=== PATIENT | female | born 1945 | race Caucasian/White ===

== ENCOUNTER 2021-11-16 10:34 | Outpatient (CLI) | payer MEDICARE | END 2021-11-16 10:35 | disposition home or self-care (01) | LOC: BICMAMMO 10:34 | PROVIDERS: ATTEND Student in an Organized Health Care Education/Training Program | DX: Z12.31 Encounter for screening mammogram for malignant neoplasm of breast (principal) | CPT/HCPCS: 77063; 77067 ==

== ENCOUNTER 2022-01-12 08:48 | Outpatient (CLI) | payer OTHER ==
[~2022-01-12 08:48] MED LIST: Iopamidol 370 76% 100 ML VIAL ONE
== END 2022-01-12 08:49 | disposition home or self-care (01) ==
LOC: CT 08:48
PROVIDERS: ATTEND Neurological Surgery
DX: I67.1 Cerebral aneurysm, nonruptured (principal)
CPT/HCPCS: 70450; 82565; Q9967

== ENCOUNTER 2022-01-26 08:43 | Outpatient (CLI) | payer OTHER | END 2022-01-26 08:44 | disposition home or self-care (01) | LOC: CT 08:43 | PROVIDERS: ATTEND Neurological Surgery | DX: I67.1 Cerebral aneurysm, nonruptured (principal) | CPT/HCPCS: 70496; 82565; Q9967 ==

== ENCOUNTER 2022-02-08 07:52 | Emergency (ER) | payer OTHER ==
[2022-02-08] MEDS ORDERED: Acetaminophen 325 MG TAB ONE (08:45)
== END 2022-02-08 09:40 | disposition home or self-care (01) ==
LOC: ERS 07:52
DX: S92.352A Displaced fracture of fifth metatarsal bone, left foot, initial encounter for closed fracture (principal); E78.00 Pure hypercholesterolemia, unspecified; E78.5 Hyperlipidemia, unspecified; Z79.01 Long term (current) use of anticoagulants; Z79.82 Long term (current) use of aspirin; Z79.899 Other long term (current) drug therapy; W19.XXXA Unspecified fall, initial encounter

== ENCOUNTER 2022-06-29 08:39 | Outpatient (CLI) | payer OTHER | END 2022-06-29 08:40 | disposition home or self-care (01) | LOC: BICMAMMO 08:39 | PROVIDERS: ATTEND Student in an Organized Health Care Education/Training Program | DX: Z13.820 Encounter for screening for osteoporosis (principal); M81.8 Other osteoporosis without current pathological fracture; Z78.0 Asymptomatic menopausal state | CPT/HCPCS: 77080 ==

== ENCOUNTER 2023-02-18 18:58 | Emergency (ER) | payer OTHER ==
[2023-02-18] MEDS ORDERED: Acetaminophen 500 MG TAB ONE (19:53)
[2023-02-18] MEDS ORDERED: Boostrix 0.5 ML (Tdap) VIAL (>/=7 yrs of age) ONE (19:53)
[2023-02-18 20:07] LABS: #Basophils 0.1 thou/uL (0.0-0.2); #Eosinphils 0.1 thou/uL (0.0-0.7); #Monocytes 0.6 thou/uL (0.11-0.59); #Neutrophils 3.9 thou/uL (1.40-6.50); %Basophils 0.7 % (0.0-1.0); %Eosinophils 1.3 % (0.0-10.0); %Lymphocytes 50.5 % (21.0-51.0); %Monocytes 6.6 % (0.0-10.0); %Neutrophils 40.6 % (42.0-75.0); Hemoglobin 10.9 g/dL (12.0-16.0); Mean Corpuscular Hemoglobin 28.8 pg (27.0-31.0); Mean Corpuscular Volume 87.3 fl (78.0-98.0); Mean Platelet Volume 10.1 fL (7.4-10.4); Platelet Count 249 10x3/uL (130-400); RBC Distribution Width 15.3 % (11.5-14.5); Red Blood Cell (RBC) Count 3.78 mill/uL (4.20-5.40); White Blood Cell (WBC) Count 9.5 10x3/uL (4.8-10.8)
[2023-02-18 20:27] LABS: INR-International Normal Ratio 2.6; PTT 37.6 sec (22.9-36.1); Prothrombin Time 28.9 sec (12.0-14.7)
[2023-02-18 20:39] LABS: ALT (SGPT) 16 U/L (8-55); AST (SGOT) 30 U/L (5-34); Alkaline Phosphatase 111 U/L (40-110); Anion Gap 18 mmol/L (10-20); BUN (Urea Nitrogen) 13 mg/dL (9.8-20.1); Bilirubin, Total 0.3 mg/dL (0.2-1.2); CK (CPK) 76 U/L (29-168); Calc. Creatinine Clearance 0 mL/min (70-130); Calcium 8.9 mg/dL (7.8-10.44); Carbon Dioxide 17 mmol/L (23-31); Chloride 102 mmol/L (98-107); Estimated GFR 77; Globulin 2.6 g/dL (2.4-3.5); Glucose 102 mg/dL (83-110); Potassium 3.9 mmol/L (3.5-5.1); Protein, Total 6.6 g/dL (5.8-8.1); Sodium 133 mmol/L (136-145)
[2023-02-18] MEDS ORDERED: Lidocaine 1% w/Epinephrine 1:100K 20 ML VIAL ONE (21:19)
== END 2023-02-18 22:41 | disposition home or self-care (01) ==
LOC: ERS 18:58
DX: S01.81XA Laceration without foreign body of other part of head, initial encounter (principal); W18.30XA Fall on same level, unspecified, initial encounter; Z23 Encounter for immunization
CPT/HCPCS: 12013; 70450; 72125; 80053; 82550; 83735; 84484; 85025; 85610; 85730; 90471; 90715; 93005

== ENCOUNTER 2023-02-21 09:10 | Emergency (ER) | payer OTHER | END 2023-02-21 11:12 | disposition home or self-care (01) | LOC: ERS 09:10 | DX: S01.81XD Laceration without foreign body of other part of head, subsequent encounter (principal); M25.531 Pain in right wrist; E78.00 Pure hypercholesterolemia, unspecified; W18.30XD Fall on same level, unspecified, subsequent encounter ==

== ENCOUNTER 2023-02-25 08:40 | Emergency (ER) | payer OTHER | END 2023-02-25 09:38 | disposition home or self-care (01) | LOC: ERS 08:40 | DX: S01.81XD Laceration without foreign body of other part of head, subsequent encounter (principal); E78.00 Pure hypercholesterolemia, unspecified; W18.30XD Fall on same level, unspecified, subsequent encounter | CPT/HCPCS: 12013 ==

== ENCOUNTER 2023-03-01 09:18 | Emergency (ER) | payer OTHER | END 2023-03-01 09:47 | disposition home or self-care (01) | LOC: ERS 09:18 | DX: S01.81XD Laceration without foreign body of other part of head, subsequent encounter (principal); E78.00 Pure hypercholesterolemia, unspecified; W18.30XD Fall on same level, unspecified, subsequent encounter; Z87.891 Personal history of nicotine dependence; Z79.01 Long term (current) use of anticoagulants; Z79.899 Other long term (current) drug therapy; Z79.84 Long term (current) use of oral hypoglycemic drugs ==

== ENCOUNTER 2023-03-09 13:28 | Outpatient (CLI) | payer OTHER ==
[~2023-03-09 13:28] MED LIST changes: -Iopamidol 370 76% 100 ML VIAL ONE; +Iopamidol-370 76% 500 ML MDV (1 ML CHARGE) ONE
== END 2023-03-09 13:29 | disposition home or self-care (01) ==
LOC: BICCT 13:28
PROVIDERS: ATTEND Neurological Surgery
DX: I67.1 Cerebral aneurysm, nonruptured (principal)
CPT/HCPCS: 70496

== ENCOUNTER 2023-08-08 10:33 | Emergency (ER) | payer OTHER ==
[2023-08-08] MEDS ORDERED: Acetaminophen 500 MG TAB ONE (11:27)
[2023-08-08 11:39] LABS: #Basophils 0.1 thou/uL (0.0-0.2); #Eosinphils 0.2 thou/uL (0.0-0.7); #Monocytes 0.7 thou/uL (0.11-0.59); #Neutrophils 5.9 thou/uL (1.40-6.50); %Basophils 0.8 % (0.0-1.0); %Eosinophils 1.5 % (0.0-10.0); %Lymphocytes 31.3 % (21.0-51.0); %Monocytes 6.9 % (0.0-10.0); %Neutrophils 59.2 % (42.0-75.0); Hemoglobin 12.1 g/dL (12.0-16.0); Mean Corpuscular HGB CONC 31.8 g/dL (32.0-36.0); Mean Corpuscular Volume 84.8 fl (78.0-98.0); Mean Platelet Volume 9.8 fL (7.4-10.4); Platelet Count 328 10x3/uL (130-400); RBC Distribution Width 15.9 % (11.5-14.5); Red Blood Cell (RBC) Count 4.48 mill/uL (4.20-5.40)
[2023-08-08 12:01] LABS: ALT (SGPT) 18 U/L (8-55); AST (SGOT) 34 U/L (5-34); Albumin 4.5 g/dL (3.4-4.8); Alkaline Phosphatase 118 U/L (40-110); Anion Gap 15 mmol/L (10-20); BUN (Urea Nitrogen) 11 mg/dL (9.8-20.1); Bilirubin, Total 0.9 mg/dL (0.2-1.2); Calc. Creatinine Clearance 0 mL/min (70-130); Calcium 9.4 mg/dL (7.8-10.44); Carbon Dioxide 25 mmol/L (23-31); Chloride 103 mmol/L (98-107); Estimated GFR 72; Globulin 3.4 g/dL (2.4-3.5); Glucose 118 mg/dL (83-110); Potassium 3.9 mmol/L (3.5-5.1); Protein, Total 7.9 g/dL (5.8-8.1); Sodium 139 mmol/L (136-145)
[2023-08-08] MEDS ORDERED: Iopamidol-370 76% 500 ML MDV (1 ML CHARGE) ONE (12:56)
== END 2023-08-08 13:08 | disposition home or self-care (01) ==
LOC: ERS 10:33
DX: K11.20 Sialoadenitis, unspecified (principal); E78.5 Hyperlipidemia, unspecified; I10 Essential (primary) hypertension; Z79.84 Long term (current) use of oral hypoglycemic drugs; Z79.899 Other long term (current) drug therapy
CPT/HCPCS: 70491; 80053; 85025; Q9967

== ENCOUNTER 2024-06-13 08:40 | Outpatient (CLI) | payer OTHER | END 2024-06-13 08:41 | disposition home or self-care (01) | LOC: BICCT 08:40 | PROVIDERS: ATTEND Neurological Surgery | DX: I67.1 Cerebral aneurysm, nonruptured (principal) | CPT/HCPCS: 70496; 82565 ==